=== PATIENT | female | born 1995 | race Caucasian/White ===

== ENCOUNTER 2018-02-02 12:31 | Emergency (ER) | payer OTHER ==
[~2018-02-02] VITALS: Ht 157.5 cm; Wt 81.6 kg
--- NOTE | 2018-02-02 12:42 | ER.PDOC ---
General Chief Complaint: Requesting Medical Care Stated Complaint: FINGER WOUND Time seen by MD: 12:34 Source: patient Exam Limitations: no limitations History of Present Illness Initial Comments Pt with right middle finger complaint. Pain on nail edge, after bitting nails, got infected and is now throbbing Occurred: last week Where: home Severity: mild Location of Injury: (R) fingers Modifying Factors: pain on movement Review of Systems Constitutional: denies no symptoms reported, denies see HPI, denies chills, denies diaphoresis, denies fever, denies malaise, denies weakness, denies other EENTM: denies no symptoms reported, denies see HPI, denies eye pain, denies blurred vision, denies tearing, denies double vision, denies ear pain, denies ear discharge, denies nose pain, denies nose congestion, denies throat pain, denies throat swelling, denies mouth pain, denies mouth swelling, denies other Respiratory: denies no symptoms reported, denies see HPI, denies cough, denies orthopnea, denies shortness of breath, denies stridor, denies wheezing, denies other Cardiovascular: denies no symptoms reported, denies see HPI, denies chest pain , denies edema, denies palpitations, denies syncope, denies other Gastrointestinal: denies no symptoms reported, denies see HPI, denies abdominal pain, denies constipation, denies diarrhea, denies nausea, denies vomiting, denies other Genitourinary: denies no symptoms reported, denies see HPI, denies discharge, denies dysuria, denies frequency, denies hematuria, denies pain, denies other Musculoskeletal: see HPI Skin: see HPI Psychiatric/Neurological: denies no symptoms reported, denies see HPI, denies anxiety, denies depressed, denies emotional problems, denies headache, denies numbness, denies paresthesia, denies pre-existing deficit, denies seizure, denies tingling, denies tremors, denies weakness, denies other Physical Exam General Appearance: Alert, No Apparent Distress Hand: tenderness (on tip of right middle finger) Wrist: nml inspection, non-tender, nml ROM Neuro: sensation nml, motor nml Vascular: no vascular compromise Tendons: tendon function nml Forearm/Elbow/Arm: uninjured above wrist Skin: warm/dry Head/ENT: nml inspection, pharynx nml Neck/Back: nml inspection, non-tender Resp/CVS: no resp distress, lungs clear, heart sounds nml, reg. rate & rhythm Departure Time of Disposition: 12:41 Disposition: 01 HOME, SELF-CARE Impression: Primary Impression: Cellulitis of finger Additional Impression: Cellulitis of finger of right hand Condition: Stable Patient Instructions: Cellulitis, [id number] Referrals: PCP,UNKNOWN (PCP) PRIMARY CARE PROVIDER Duration or Time Spent with Pa: 10 WILFREDO MERCHANT MD Feb 02, 2018 12:42
[2018-02-02 12:46] VITALS: BP 168/98
[2018-02-02 12:53] VITALS: BP 168/98
== END 2018-02-02 12:50 | disposition home or self-care (01) ==
LOC: ER 12:31
DX: L03.113 Cellulitis of right upper limb (principal)
CPT/HCPCS: 99283